=== PATIENT | female | born 1940 | race Caucasian/White ===

== ENCOUNTER 2018-01-28 10:31 | Outpatient (CLI) | payer OTHER | END 2018-01-28 12:23 | disposition home or self-care (01) | LOC: MAMO-SONO 10:31 | DX: Z12.31 Encounter for screening mammogram for malignant neoplasm of breast (principal); Z87.898 Personal history of other specified conditions; N60.11 Diffuse cystic mastopathy of right breast; N60.12 Diffuse cystic mastopathy of left breast; M81.0 Age-related osteoporosis without current pathological fracture ==

== ENCOUNTER 2019-03-21 09:40 | Emergency (ER) | payer OTHER ==
[~2019-03-21] VITALS: Ht 154.9 cm; Wt 72.1 kg
[2019-03-21] MEDS ORDERED: CRESTOR10 MG (09:52)
[2019-03-21] MEDS ORDERED: VASOTEC2.5 MG (09:52)
[2019-03-21] MEDS ORDERED: CARVEDILOL ER40 MG (09:52)
== END 2019-03-21 14:47 ==
LOC: ER 09:40
DX: R05 Cough (principal); B96.0 Mycoplasma pneumoniae [M. pneumoniae] as the cause of diseases classified elsewhere

== ENCOUNTER 2021-12-12 12:10 | Outpatient (CLI) | payer OTHER ==
[~2021-12-12 12:10] MED LIST: CARVEDILOL ER40 MG; CRESTOR10 MG; VASOTEC2.5 MG
== END 2021-12-12 12:16 | disposition home or self-care (01) ==
LOC: MAMO-SONO 12:10
PROVIDERS: ATTEND General Practice
DX: Z12.31 Encounter for screening mammogram for malignant neoplasm of breast (principal); N63.20 Unspecified lump in the left breast, unspecified quadrant; N64.4 Mastodynia

== ENCOUNTER → 2023-04-11 | Emergency (ER) | payer OTHER ==
[~2023-04-11] VITALS: Ht 154.9 cm; Wt 75.3 kg
[~2023-04-11] MED LIST changes: +TUSSIN100 MG/51 PO; +XOPENEX CO1.25 MG/0. IH; +ZITHROMAX500 MG PO
[2023-04-11 10:11] LABS: HEMATOCRIT 38.4 % (36.0-45.00); MEAN CORPUSCULAR HEMOGLOBIN 30.1 pg (27.00-32.0); MEAN CORPUSCULAR HGB CONC 33.8 g/dl (32.0-36.0); PLATELET COUNT 206 K/uL (150-450); RED BLOOD COUNT 4.31 M/uL (4.00-6.00); RED CELL DISTRIBUTION WIDTH 13.3 % (11.5-14.5)
== END | disposition home or self-care (01) ==
LOC: ER
PROVIDERS: General Practice
DX: J06.9 Acute upper respiratory infection, unspecified (principal); Z95.0 Presence of cardiac pacemaker; I10 Essential (primary) hypertension; Z87.09 Personal history of other diseases of the respiratory system; Z87.898 Personal history of other specified conditions; Z20.822 Contact with and (suspected) exposure to COVID-19
CPT/HCPCS: 36415; 71046; 94640; 96365; 99284; J2930

== ENCOUNTER 2023-07-14 09:00 | Emergency (ER) | payer OTHER ==
[~2023-07-14] VITALS: Ht 154.9 cm; Wt 72.6 kg
[2023-07-14] MEDS ORDERED: BUDESONIDE 0.5 MG/2 ML AMPUL.NEB IH STA (09:54)
[2023-07-14] MEDS ORDERED: LEVALBUTEROL HCL 1.25 MG/3 ML SOLUTION IH SCH (10:00)
[2023-07-14 10:23] LABS: HEMATOCRIT 38.7 % (36.0-45.00); MEAN CELL VOLUME 88.3 fL (80.00-100.00); MEAN CORPUSCULAR HEMOGLOBIN 29.6 pg (27.00-32.0); MEAN CORPUSCULAR HGB CONC 33.5 g/dl (32.0-36.0); PLATELET COUNT 205 K/uL (150-450); RED BLOOD COUNT 4.38 M/uL (4.00-6.00); RED CELL DISTRIBUTION WIDTH 13.9 % (11.5-14.5)
[2023-07-14] MEDS ORDERED: METHYLPREDNISOLONE SOD SUCC 125 MG VIAL IV ONE (12:15)
[2023-07-14] MEDS ORDERED: IPRATROPIUM BROMIDE 0.5 MG/2.5 ML AMPUL.NEB IH ONE (12:15)
[2023-07-14 15:11] LABS: ABG PH 7.422 (7.35-7.45); ABG pCO2 34.7 mmHg (35-45); BASE EXCESS -1.6 mmol/l
[2023-07-14 15:12] LABS: BICARBONATE 22.1 mmol/l (23-25); Tco2 23.2 mmol/l; allen test SATISFACTORY; o2 21 %; puncture site RADIAL LEFT
[2023-07-14 15:13] LABS: SaO2 97.8 %
== END 2023-07-14 14:21 | disposition home or self-care (01) ==
LOC: ER 09:01
PROVIDERS: Emergency Medicine; General Practice
DX: J98.01 Acute bronchospasm (principal); I10 Essential (primary) hypertension; Z87.09 Personal history of other diseases of the respiratory system; Z20.822 Contact with and (suspected) exposure to COVID-19
CPT/HCPCS: 36415; 71046; 82803; 94640; 96365; 99284; J3490

== ENCOUNTER 2023-12-09 12:41 | Emergency (ER) | payer OTHER ==
[~2023-12-09] VITALS: Ht 154.9 cm; Wt 72.6 kg
[~2023-12-09 12:41] MED LIST changes: +CARVEDILOL ER40 MG PO; +CRESTOR10 MG PO; +ELIQUIS2.5 MG; +VASOTEC10 MG PO
[2023-12-09] MEDS ORDERED: KETOROLAC TROMETHAMINE 15 MG VIAL IM STA (14:18)
[2023-12-09] MEDS ORDERED: DEXAMETHASONE SODIUM PHOSPHATE 4 MG/ML VIAL IM STA (14:25)
[2023-12-09] MEDS ORDERED: KETOROLAC TROMETHAMINE 30 MG VIAL ONE (14:26)
[2023-12-09] MEDS ORDERED: DEXAMETHASONE SODIUM PHOSPHATE 4 MG/ML VIAL ONE (14:30)
== END 2023-12-09 14:39 | disposition home or self-care (01) ==
LOC: ER 12:42
DX: M25.561 Pain in right knee (principal)
CPT/HCPCS: 96372; 99283; J1100; J1885